=== PATIENT | male | born 1990 | race African-American/Black ===

== ENCOUNTER 2017-01-03 18:55 | Emergency (ER) | payer OTHER ==
[~2017-01-03] VITALS: Ht 190.5 cm; Wt 102.6 kg
[~2017-01-03 18:55] MED LIST: IBUP-1277 PO
[2017-01-03 19:01] VITALS: TEMP 37.1; Ht 190.5 cm; Wt 102.6 kg
--- NOTE | 2017-01-03 19:34 | EMERGENCY ROOM VISIT NOTE ---
ED Visit Note First contact with patient: 19:13 CHIEF COMPLAINT: Low back pain HISTORY OF PRESENT ILLNESS: This 26-year-old male patient presents to the emergency department ambulatory complaining of pain in the low back which began earlier this week. The pain was gradual in onset, is now constant and worse with movement. The patient notes the pain as sharp and a 7/10. The patient has taken nothing for relief of the pain. The patient denies any bowel or bladder difficulties. There has been no leg numbness or weakness, and no change in sensation. No nausea or vomiting or abdominal pain. No chest pain or shortness of breath. The patient has not had prior back injuries. 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 He does not recall any specific injury but feels as though the repetitive lifting is causing his back pain. REVIEW OF SYSTEMS: No dysuria or increased urinary frequency. A 10 system review of systems was completed and pertinent positives and negatives are in the HPI. ALLERGIES: No known drug allergies MEDICATIONS: None PMH: None SOCIAL HISTORY: The patient lives locally. He is employed PHYSICAL EXAM: VITALS: Vitals are noted on the nurse's note and reviewed by myself. No abnormalities noted. GENERAL: As a 26-year-old male, in no acute distress, nondiaphoretic, well- developed well-nourished. SKIN: The skin was without rashes, erythema, edema, or bruising. Capillary refill less than 2 seconds. NECK: Supple without nuchal rigidity. No cervical spine tenderness. No paraspinous muscle tenderness. HEART: Regular rate and rhythm without murmurs gallops or rubs. LUNGS: Clear to auscultation bilaterally without wheezes, rales or rhonchi. ABDOMEN: Positive bowel sounds x 4. Normal tympanic percussion. Soft, nontender, without masses or organomegaly. Romero sign negative. MUSCULOSKELETAL: No muscle atrophy, erythema, or edema noted of the back. There is mild tenderness over the lumbar spinous processes. There is mild tenderness over the paraspinous muscles on the left. There is no tenderness over the thoracic spine or paraspinous muscles. There are no obvious muscle spasms present. The patient is slow to move around with maximum tenderness with extension. Negative straight leg raise test. NEURO: Patient was alert and oriented to person place and time. Normal sensation to light and sharp touch. Deep tendon reflexes 2+ in the lower extremities. Dorsalis pedis pulse 2+ bilaterally. Strength is 5/5 in the lower extremities bilaterally. EMERGENCY DEPARTMENT COURSE: The patient was seen and examined. Previous visits were reviewed. The patient does not have a fever. He does not have any neurologic deficit on exam or by history. He does not have any radiation of his pain. He does not have any abdominal pain or urinary symptoms. 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 I advised him that he will need to rest his back. I recommended no lifting more than 10 pounds for at least 5 days. He should try anti-inflammatories and Flexeril. He should follow-up with the family doctor for further evaluation if his symptoms are not improving. He should return sooner with any worsening symptoms. DIFFERENTIAL DIAGNOSIS: Lumbar strain, degenerative disc disease, spondylolisthesis, herniated disc, spinal stenosis, osteoporosis, fracture, cauda equina syndrome, neoplasm, infection, inflammatory arthritis, among others. DIAGNOSIS: Lumbar strain DISCHARGE INSTRUCTIONS AND TREATMENT: Rest off your feet for 1 to 2 days, ice for 24 hrs then heat to the low back. See your own doctor or an orthopedist in 5-7 days if you are not improving. Ibuprofen 600 mg every 6 hours if needed for the pain. Flexeril 3 times a day as needed for muscle spasm. No driving or alcohol use with Flexeril. Return if any problems with bowel or bladder function or if loss of sensation/movement of lower extremities. LUMBAR SPINE 5 VIEWS HISTORY: Pain low back pain COMPARISON: None. FINDINGS: There is no fracture. No subluxation. Disc spaces are preserved. IMPRESSION: No fracture or subluxation within the lumbar spine. Current/Historical Medications Scheduled Cyclobenzaprine Hcl (Flexeril), 10 MG PO TID Allergies Coded Allergies: No Known Allergies (Unverified , 01/03/17) Vital Signs Date Time Temp Pulse Resp B/P Pulse Ox O2 Delivery O2 Flow Rate FiO2 01/03/17 19:01 37.1 76 18 134/69 98 Room Air Departure Information Impression Primary Impression: Low back pain Dispostion Home / Self-Care Condition GOOD Prescriptions Cyclobenzaprine Hcl (FLEXERIL) 10 Mg Tab 10 MG PO TID, #30 TAB Prov: Joanne Pena PA-C 01/03/17 Referrals No Doctor, Assigned (PCP) Juwan Koroma M.D. Forms HOME CARE DOCUMENTATION FORM, IMPORTANT VISIT INFORMATION, Work Instructions Lifting Limitations: no more than 10 pounds Additional Instructions: no lifiting more than 10 pounds for 5 days Patient Instructions Back Pain - [facility] Additional Instructions Rest off your feet for 1 to 2 days, ice for 24 hrs then heat to the low back. See your own doctor or an orthopedist in 5-7 days if you are not improving. Ibuprofen 600 mg every 6 hours if needed for the pain. Flexeril 3 times a day as needed for muscle spasm. No driving or alcohol use with Flexeril. Return if any problems with bowel or bladder function or if loss of sensation/movement of lower extremities.
--- NOTE | 2017-01-03 19:50 | DIAGNOSTIC IMAGING REPORT ---
LUMBAR SPINE 5 VIEWS HISTORY: Pain low back pain COMPARISON: None. FINDINGS: There is no fracture. No subluxation. Disc spaces are preserved. IMPRESSION: No fracture or subluxation within the lumbar spine. Electronically signed by: Eder Starr M.D. 01/03/2017 7:49 PM Dictated Date/Time: 01/03/2017 7:48 PM
[2017-01-03] MEDS ORDERED: FLEXERIL HOME PACK 10 MG VIAL PO ONE (20:00)
[2017-01-03] MEDS ORDERED: CYCL10TA6 PO (20:05)
[2017-01-03 20:30] VITALS: BP 125/65; PULSE 72; O2SAT 96
== END 2017-01-03 20:35 | disposition home or self-care (01) ==
LOC: C.EDB 18:56 → C.EDD 20:35
DX: S39.012A Strain of muscle, fascia and tendon of lower back, initial encounter (principal); X58.XXXA Exposure to other specified factors, initial encounter

== ENCOUNTER 2017-11-23 10:37 | Emergency (ER) | payer OTHER ==
[~2017-11-23] VITALS: Ht 190.5 cm; Wt 102.6 kg
[2017-11-23 10:45] VITALS: TEMP 36.2; Ht 190.5 cm; Wt 102.6 kg
[2017-11-23] MEDS ORDERED: CEPH500C PO (11:07)
--- NOTE | 2017-11-23 11:09 | EMERGENCY ROOM VISIT NOTE ---
History First contact with patient: 10:53 Chief Complaint: RASH Stated Complaint: RASH AND PAIN ON HEAD History of Present Illness The patient is a 26 year old male who presents to the Emergency Room via private vehicle with complaints of "rash and pain on head". The patient states that he developed pain/itchiness on the back of his scalp. He notes that he has had this before and he has had a bacterial infection shingles. He states that he had his head shaved recently. It was shortly thereafter he developed this irritation. He is unsure of his tetanus status. He rates his overall pain is a 6/10. He denies any fevers, chills. Review of Systems A complete 6-point Review of Systems was discussed with the patient, with pertinent positives and negatives listed in the History of Present Illness. All remaining Review of Systems questions can be considered negative unless otherwise specified. Past Medical/Surgical History Shingles, bacterial infection of scalp. Family History No pertinent. Social History Smoking Status: Never Smoker Occupation Status: employed Patient is employed and lives locally. Current/Historical Medications No Active Prescriptions or Reported Meds Physical Exam Vital Signs Date Time Temp Pulse Resp B/P (MAP) Pulse Ox O2 Delivery O2 Flow Rate FiO2 11/23/17 11:27 62 18 135/78 98 Room Air 11/23/17 10:45 36.2 57 18 130/85 96 Room Air Physical Exam VITAL SIGNS - Vital signs and nursing notes were reviewed. Stable. Afebrile. GENERAL -26-year-old male appearing his stated age who is in no acute distress. Communicates well with provider and answers questions appropriately. SKIN -on the occipital region of the patient's right scalp, there is evidence of recently shaved head and short hairs. There is some flaking scalp, as well as small raised papular regions that are centered around individual follicles. No drainage. No edema. HEAD - NC/AT. EYES - PERRL with EOMI bilaterally. Sclera anicteric. EARS: Normal to examination bilaterally. NOSE - Midline and without cyanosis. No epistaxis or purulent drainage noted. MOUTH/OROPHARYNX - Without perioral cyanosis. NECK - Neck with FROM. Supple to palpation. No lymphadenopathy noted. No nuchal rigidity. Medical Decision & Procedures Medications Administered Medications (Trade) Dose Ordered Sig/Shanika Route Start Time Stop Time Status Last Admin Dose Admin Diphtheria/ Pertussis/Tetanus Vacc (Adacel Inj) 0.5 ml ONCE ONCE IM. 11/23/17 11:15 11/23/17 11:16 DC 11/23/17 11:16 0.5 ML Medical Decision Patient was seen and evaluated as above in room D7. He has what appears to be a dermatitis which is likely also centered around small folliculitis. There are numerous small hair follicles on the posterior right occipital region that have a surrounding area of minimal edema. This is likely developing folliculitis. No drainage. He is afebrile. I believe that a course of Keflex is reasonable and he is to not wear any hats/keep the area dry. He is to gently wash this region. He question if he could use steroid and I informed him that I would refrain from this as it can make the infection worse. No evidence of shingles. No evidence of systemic response. He notes he does not have a family doctor but recently acquired health insurance. I recommended that he calls to identify which family doctors participate in the area and he is to follow with them. He is to return here with worsening. The patient was educated upon management, had questions answered prior to discharge, and was discharged home in good condition. Because of the breaks in the skin I would recommend updating his tetanus which he does not believe is up-to-date. In the evaluation and treatment of this patient the following differential diagnoses were entertained: Contact dermatitis, shingles, folliculitis, cellulitis, among others. Impression Primary Impression: Folliculitis Departure Information Dispostion Home / Self-Care Condition GOOD Prescriptions No Active Prescriptions or Reported Meds Referrals No Doctor, Assigned (PCP) Patient Instructions [facility] Additional Instructions You were seen in the emergency department for irritation on the back of your scalp. At this time I suspect you have what is called folliculitis, which is a small infection/irritation of your small hair follicles that occurred shortly after the head was shaved. The more things touch this area like hats and sweat more irritated and risk of infection you will develop. At this time I do recommend utilizing Keflex, which is antibiotic in a pill form. It is 1 tablet every 8 hours for 7 days. As we discussed you may use an antibiotic ointment like Neosporin on this in a thin layer daily. I do recommend not wearing any hats however if you have to wear a hat, you may cover this area with gauze as we discussed. Please watch for worsening signs like redness, swelling, fevers or chills and if these develop please return. The steroid cream that you had in the past was likely hydrocortisone. This is purchased [id number]. You may try this but be very careful as this can make the infection worse and can thin the skin over time. Please return with any new/concerning symptoms. As we discussed I do recommend follow-up with a family doctor. You may call the back of the insurance card to identify participating doctors in the area.
[2017-11-23] MEDS ORDERED: DIPHTHERIA/TETANUS/PERTUSSIS 0.5 ML SYR/VIAL IM. ONE (11:15)
[2017-11-23 11:27] VITALS: BP 135/78; PULSE 62; O2SAT 98
== END 2017-11-23 11:29 | disposition home or self-care (01) ==
LOC: C.EDB 10:39 → C.EDD 11:29
DX: L73.9 Follicular disorder, unspecified (principal); Z23 Encounter for immunization